=== PATIENT | female | born 1985 | race Hispanic/Latino ===

== ENCOUNTER 2020-10-22 18:42 | Emergency (ER) | payer OTHER ==
[~2020-10-22] VITALS: Ht 157.5 cm; Wt 95.3 kg
[2020-10-22 19:42] LABS: BASOPHILS % (AUTO) 0.6 % (0.0-5.0); EOSINOPHILS % (AUTO) 3.8 % (0.0-8.0); HEMATOCRIT 30.6 % (36-48); LYMPHOCYTES % (AUTO) 36.4 % (21.0-51.0); MEAN CORPUSCULAR HEMOGLOBIN 23.4 pg (27.0-33.0); MEAN CORPUSCULAR HGB CONC 30.7 g/dL (32.0-36.0); MEAN CORPUSCULAR VOLUME 76.3 fL (79-99); MONOCYTES % (AUTO) 6.3 % (3.0-13.0); NEUTROPHILS % (AUTO) 52.7 % (40.0-77.0); PLATELET COUNT (AUTO) 240 K/uL (130-400); RED BLOOD CELL COUNT(AUTO) 4.01 MIL/uL (4.00-5.50); RED CELL DISTRIBUTION WIDTH 15.6 % (11.0-15.5); WHITE BLOOD COUNT (AUTO) 8.4 K/uL (4.8-10.8)
[2020-10-22 20:19] LABS: CREATINE KINASE, TOTAL 80 U/L (21-232); MYOGLOBIN 15 ng/mL (10-92); TROPONIN I < 0.04 ng/mL (0.00-0.06)
[2020-10-22 20:33] VITALS: BP 135/73
[2020-10-22 20:58] LABS: CREATININE 0.7 mg/dL (0.5-1.5); POTASSIUM 3.8 mmol/L (3.5-5.1)
[2020-10-22 20:58] LABS: APPEARANCE,URINE Clear (CLEAR); BILIRUBIN,URINE Negative (NEGATIVE); COLOR,URINE Yellow (YELLOW); GLUCOSE, URINE (UA) Negative (NEGATIVE); KETONES,URINE Negative (NEGATIVE); LEUKOCYTE ESTERASE ,URINE Trace (NEGATIVE); NITRATE,URINE Negative (NEGATIVE); OCCULT BLOOD,URINE Large (NEGATIVE); PROTEIN,URINE Negative (NEGATIVE)
[2020-10-22 21:02] LABS: ALBUMIN 3.6 g/dL (3.5-5.0); BILIRUBIN,TOTAL 0.3 mg/dL (0.2-1.0); TOTAL PROTEIN, SERUM 7.2 g/dL (6.0-8.3)
[2020-10-22 21:02] LABS: HCG,QUAL RESULT NEGATIVE (NEGATIVE)
[2020-10-22 21:15] LABS: BACTERIA,URINE Few /HPF (None Seen); RBC,URINE 0-1 /HPF (0-1)
[2020-10-22 21:38] VITALS: BP 102/50
[2020-10-22] MEDS ORDERED: HYD25 PO (21:55)
== END 2020-10-22 22:11 | disposition home or self-care (01) ==
LOC: EDH 18:42
DX: R07.89 Other chest pain (principal); D64.9 Anemia, unspecified; F41.9 Anxiety disorder, unspecified; Z20.822 Contact with and (suspected) exposure to COVID-19; E11.9 Type 2 diabetes mellitus without complications; Z79.899 Other long term (current) drug therapy
CPT/HCPCS: 36415; 71045; 80053; 81001; 81025; 82550; 83690; 83874; 84484; 85025; 87635; 93005; 99285; C9803

== ENCOUNTER 2021-05-04 07:00 | Day surgery (SDC) | payer OTHER ==
[2021-05-03 15:38] LABS: BASOPHILS % (AUTO) 0.4 % (0.0-5.0); EOSINOPHILS % (AUTO) 0.7 % (0.0-8.0); HEMATOCRIT 29.8 % (36-48); MEAN CORPUSCULAR HEMOGLOBIN 22.8 pg (27.0-33.0); MEAN CORPUSCULAR HGB CONC 30.5 g/dL (32.0-36.0); MEAN CORPUSCULAR VOLUME 74.5 fL (79-99); MONOCYTES % (AUTO) 5.6 % (3.0-13.0); PLATELET COUNT (AUTO) 329 K/uL (130-400); RED CELL DISTRIBUTION WIDTH 15.9 % (11.0-15.5)
[2021-05-03 15:41] VITALS: BP 132/76
[~2021-05-04] VITALS: Ht 157.5 cm; Wt 90.7 kg
[2021-05-04] VITALS (9 sets, daily range): BP systolic 108–126; BP diastolic 48–78
[~2021-05-04 07:00] MED LIST: OMEP40CA21 PO
[2021-05-04] MEDS ORDERED: LACTATED RINGERS 1000ML 1,000 ML IV ONE (07:16)
[2021-05-04] MEDS ORDERED: PROPOFOL 10 MG/ML 20ML VIAL IV ONE (07:49)
[2021-05-04] MEDS ORDERED: LIDOCAINE PF 100MG/5ML (2%) SYRINGE 5ML ONE (07:50)
[2021-05-04] MEDS ORDERED: ROCURONIUM 10MG/1ML SYR 10 MG/ML ML ONE (07:50)
[2021-05-04] MEDS ORDERED: FENTANYL CITRATE PF 50 MCG/1 ML 2ML VIAL ONE (07:50)
[2021-05-04] MEDS ORDERED: MIDAZOLAM HCL 1 MG/ML 2ML VIAL ONE (07:50)
[2021-05-04] MEDS ORDERED: SUCCINYLCHOLINE 200MG/10ML SYR ONE (07:50)
[2021-05-04] MEDS ORDERED: iron PO (08:09)
[2021-05-04] MEDS ORDERED: vitamin d3 PO (08:09)
[2021-05-04] MEDS ORDERED: vitamin c PO (08:09)
[2021-05-04] MEDS ORDERED: LORA10TA7 PO (08:09)
[2021-05-04] MEDS ORDERED: DEXAMETHASONE SOD PHOSPHATE 4 MG/ML 1ML VIAL ONE (08:13)
[2021-05-04] MEDS ORDERED: ONDANSETRON 4MG INJ ONE (08:13)
[2021-05-04] MEDS ORDERED: EPHEDRINE SULFATE 50 MG/ML AMPULE ONE (08:22)
[2021-05-19] MEDS ORDERED: ACET1TAB25 PO (10:30)
== END 2021-05-04 10:38 | disposition home or self-care (01) ==
LOC: DAH 07:00
PROVIDERS: ATTEND Specialist
DX: N92.0 Excessive and frequent menstruation with regular cycle (principal); Z20.822 Contact with and (suspected) exposure to COVID-19; K21.9 Gastro-esophageal reflux disease without esophagitis; D64.9 Anemia, unspecified; E66.9 Obesity, unspecified; I49.3 Ventricular premature depolarization; Z98.890 Other specified postprocedural states; Z98.891 History of uterine scar from previous surgery
CPT/HCPCS: 36415; 58120; 84703; 85025; 86850; 86900; 86901; 87635; A4215; A4221; A4222; A4223; A4351; A4663; A4930; A6260; C9803; J0330; J1100; J2001; J2250; J2405; J2704; J3010; J3490; J7120

== ENCOUNTER 2021-05-07 15:30 | Observation (INO) | payer OTHER ==
[~2021-05-07] VITALS: Ht 157.5 cm; Wt 89.4 kg
[~2021-05-07 15:30] MED LIST changes: +LORA10TA7 PO; +iron PO; +vitamin c PO; +vitamin d3 PO
[2021-05-07] MEDS ORDERED: 0.9%NACL 1000ML 1,000 ML IV SCH (16:30)
[2021-05-07 16:50] VITALS: BP 125/74
[2021-05-07 17:31] LABS: BASOPHILS % (AUTO) 0.5 % (0.0-5.0); EOSINOPHILS % (AUTO) 1.1 % (0.0-8.0); HEMATOCRIT 22.5 % (36-48); LYMPHOCYTES % (AUTO) 22.2 % (21.0-51.0); MEAN CORPUSCULAR HEMOGLOBIN 22.8 pg (27.0-33.0); MEAN CORPUSCULAR HGB CONC 30.7 g/dL (32.0-36.0); MEAN CORPUSCULAR VOLUME 74.5 fL (79-99); MONOCYTES % (AUTO) 5.4 % (3.0-13.0); NEUTROPHILS % (AUTO) 69.6 % (40.0-77.0); NUCLEATED RED BLOOD CELLS 0.4 % (0.0-0.19); PLATELET COUNT (AUTO) 346 K/uL (130-400); RED BLOOD CELL COUNT(AUTO) 3.02 MIL/uL (4.00-5.50); RED CELL DISTRIBUTION WIDTH 16.8 % (11.0-15.5); WHITE BLOOD COUNT (AUTO) 9.3 K/uL (4.8-10.8)
[2021-05-07 19:18] VITALS: BP 138/79
[2021-05-07] MEDS: FERROUS SULFATE 325 MG TABLET.DR PO SCH (21:43)
[2021-05-07 23:30] VITALS: BP 126/78
[2021-05-08 04:00] VITALS: BP 97/60
[2021-05-08 06:56] LABS: HEMATOCRIT 28.1 % (36-48)
[2021-05-08 07:50] VITALS: BP 124/74
[2021-05-08] MEDS: FERROUS SULFATE 325 MG TABLET.DR PO SCH ×2 (09:05→20:12)
[2021-05-08] MEDS: MEDROXYPROGESTERONE ACET 5 MG TAB PO SCH (09:05)
[2021-05-08 12:30] VITALS: BP 122/73
[2021-05-08] MEDS: PANTOPRAZOLE 40 MG TAB DR PO SCH (12:38)
[2021-05-08 16:44] VITALS: BP 118/72
[2021-05-08 20:00] VITALS: BP 111/70
[2021-05-08 23:00] VITALS: BP 111/68
[2021-05-09 03:00] VITALS: BP 117/66
[2021-05-09 06:15] LABS: HEMATOCRIT 27.2 % (36-48); MEAN CORPUSCULAR HEMOGLOBIN 24.8 pg (27.0-33.0); MEAN CORPUSCULAR HGB CONC 32.7 g/dL (32.0-36.0); MEAN CORPUSCULAR VOLUME 75.8 fL (79-99); NUCLEATED RED BLOOD CELLS 0.2 % (0.0-0.19); PLATELET COUNT (AUTO) 124 K/uL (130-400); RED BLOOD CELL COUNT(AUTO) 3.59 MIL/uL (4.00-5.50); RED CELL DISTRIBUTION WIDTH 17.5 % (11.0-15.5); WHITE BLOOD COUNT (AUTO) 8.2 K/uL (4.8-10.8)
[2021-05-09 07:35] VITALS: BP 112/69
[2021-05-09] MEDS: FERROUS SULFATE 325 MG TABLET.DR PO SCH (09:33)
[2021-05-09] MEDS: MEDROXYPROGESTERONE ACET 5 MG TAB PO SCH (09:33)
[2021-05-09] MEDS: PANTOPRAZOLE 40 MG TAB DR PO SCH (09:33)
[2021-05-19] MEDS ORDERED: ACET1TAB25 PO (10:30)
== END 2021-05-09 10:20 | disposition home or self-care (01) ==
LOC: EDH 15:30 → INTOOBSV 15:31 → WSH 15:31
PROVIDERS: ADMIT Specialist; ATTEND Specialist
DX: N92.0 Excessive and frequent menstruation with regular cycle (principal); Z20.822 Contact with and (suspected) exposure to COVID-19; D64.9 Anemia, unspecified
CPT/HCPCS: 36415 ×3; 36430; 85014; 85018; 85025; 85027; 86850; 86900; 86901; 86923; 87635; G0378 ×37; J7030 ×2; P9016 ×2; 96365

== ENCOUNTER 2023-12-28 20:51 | Emergency (ER) | payer BC, OTHER ==
[~2023-12-28] VITALS: Ht 157.5 cm; Wt 91.2 kg
[~2023-12-28 20:51] MED LIST changes: +ACET-2079 PO
[2023-12-28] MEDS: LACTATED RINGERS 1000ML 1,000 ML IV ONE (21:26)
[2023-12-28] MEDS: 0.9%NACL 1000ML 1,000 ML IV ONE (21:26)
[2023-12-28 21:36] LABS: ADD UA MICROSCOPIC YES; APPEARANCE,URINE CLEAR (CLEAR); BILIRUBIN,URINE NEGATIVE (NEGATIVE); COLOR,URINE COLORLESS (YELLOW); GLUCOSE, URINE (UA) NEGATIVE (NEGATIVE); KETONES,URINE NEGATIVE (NEGATIVE); LEUKOCYTE ESTERASE ,URINE NEGATIVE Leu/uL (NEGATIVE); NITRATE,URINE NEGATIVE (NEGATIVE); OCCULT BLOOD,URINE NEGATIVE (NEGATIVE); PH,URINE 6.5 (5.0-8.0); PROTEIN,URINE NEGATIVE (NEGATIVE); UROBILINOGEN,URINE 0.2 mg/dL (0.2-1.0)
[2023-12-28 21:38] LABS: BACTERIA,URINE RARE /HPF (None Seen); RBC,URINE 0-1 /HPF (0-1); SQUAMOUS EPITHELIAL CELL,UR RARE /HPF (0-2); WBC,URINE 0-1 /HPF (0-1)
[2023-12-28 21:47] LABS: BASOPHILS # (AUTO) 0.04 K/uL (0.00-0.20); BASOPHILS % (AUTO) 0.4 % (0.0-5.0); EOSINOPHILS # (AUTO) 0.25 K/uL (0.00-0.70); EOSINOPHILS % (AUTO) 2.7 % (0.0-8.0); HEMATOCRIT 41.2 % (36-48); IMMATURE GRANULOCYTE ABSOLUTE 0.02 K/uL (0-1); LYMPHOCYTES # (AUTO) 2.6 K/uL (1.0-4.8); LYMPHOCYTES % (AUTO) 27.5 % (21.0-51.0); MEAN CORPUSCULAR HEMOGLOBIN 31.3 pg (27.0-33.0); MEAN CORPUSCULAR VOLUME 89.6 fL (79-99); MONOCYTES # (AUTO) 0.7 K/uL (0.1-1.0); MONOCYTES % (AUTO) 7.6 % (3.0-13.0); NEUTROPHILS # (AUTO) 5.7 K/uL (1.8-7.7); NEUTROPHILS % (AUTO) 61.6 % (40.0-77.0); PLATELET COUNT (AUTO) 247 K/uL (130-400); WHITE BLOOD COUNT (AUTO) 9.3 K/uL (4.8-10.8)
[2023-12-28 21:54] LABS: CREATININE 0.7 mg/dL (0.5-1.0); MAGNESIUM 1.8 mg/dL (1.80-2.40); POTASSIUM 3.7 mmol/L (3.5-5.1)
[2023-12-28 22:06] VITALS: BP 143/74; PULSE 81; RESP 20; TEMP 98.6; O2SAT 100
== END 2023-12-28 22:27 | disposition home or self-care (01) ==
LOC: EDH 20:51
DX: E86.0 Dehydration (principal); Z79.899 Other long term (current) drug therapy; Z87.59 Personal history of other complications of pregnancy, childbirth and the puerperium; Z98.890 Other specified postprocedural states
CPT/HCPCS: 99284; 83735; 84484; 80048; 84703; 85025; 81001; 36415; 93005; J7120; J7030

== ENCOUNTER 2024-01-02 21:37 | Emergency (ER) | payer BC ==
[~2024-01-02] VITALS: Ht 157.5 cm; Wt 91.2 kg
[2024-01-02 21:55] VITALS: TEMP 97.8
[2024-01-02] MEDS: LACTATED RINGERS 1000ML 1,000 ML IV ONE (22:03)
[2024-01-02 22:05] LABS: BASOPHILS # (AUTO) 0.05 K/uL (0.00-0.20); BASOPHILS % (AUTO) 0.5 % (0.0-5.0); EOSINOPHILS # (AUTO) 0.37 K/uL (0.00-0.70); EOSINOPHILS % (AUTO) 3.4 % (0.0-8.0); HEMATOCRIT 46.4 % (36-48); IMMATURE GRANULOCYTE ABSOLUTE 0.02 K/uL (0-1); LYMPHOCYTES # (AUTO) 3.7 K/uL (1.0-4.8); LYMPHOCYTES % (AUTO) 33.6 % (21.0-51.0); MEAN CORPUSCULAR HEMOGLOBIN 31.7 pg (27.0-33.0); MEAN CORPUSCULAR HGB CONC 34.9 g/dL (32.0-36.0); MEAN CORPUSCULAR VOLUME 90.8 fL (79-99); MONOCYTES # (AUTO) 0.7 K/uL (0.1-1.0); MONOCYTES % (AUTO) 6.3 % (3.0-13.0); NEUTROPHILS # (AUTO) 6.1 K/uL (1.8-7.7); PLATELET COUNT (AUTO) 279 K/uL (130-400); RED BLOOD CELL COUNT(AUTO) 5.11 MIL/uL (4.00-5.50); RED CELL DISTRIBUTION WIDTH 11.7 % (11.0-15.5); WHITE BLOOD COUNT (AUTO) 10.9 K/uL (4.8-10.8)
[2024-01-02 22:15] LABS: CREATININE 0.8 mg/dL (0.5-1.0); POTASSIUM 3.7 mmol/L (3.5-5.1)
[2024-01-02 22:17] LABS: INR 0.95 (0.85-1.15); PROTHROMBIN TIME 10.3 SEC (9.6-11.6)
[2024-01-02 22:19] LABS: B-TYPE NATRIURETIC PEPTIDE < 5 pg/mL (0-100)
[2024-01-02 23:05] LABS: APPEARANCE,URINE CLEAR (CLEAR); BILIRUBIN,URINE NEGATIVE (NEGATIVE); COLOR,URINE COLORLESS (YELLOW); GLUCOSE, URINE (UA) NEGATIVE (NEGATIVE); KETONES,URINE NEGATIVE (NEGATIVE); LEUKOCYTE ESTERASE ,URINE NEGATIVE Leu/uL (NEGATIVE); NITRATE,URINE NEGATIVE (NEGATIVE); OCCULT BLOOD,URINE NEGATIVE (NEGATIVE); PROTEIN,URINE NEGATIVE (NEGATIVE); UROBILINOGEN,URINE 0.2 mg/dL (0.2-1.0)
[2024-01-02 23:06] LABS: ADD UA MICROSCOPIC NO
[2024-01-02 23:08] LABS: AMPHET/METH SCREEN,URINE NEGATIVE (NEGATIVE); BARBITURATE SCREEN, URINE NEGATIVE (NEGATIVE); BENZODIAZEPINES SCREEN,URINE NEGATIVE (NEGATIVE); CANNABINOID SCREEN,URINE NEGATIVE (NEGATIVE); COCAINE SCREEN,URINE NEGATIVE (NEGATIVE); OPIATE SCREEN,URINE NEGATIVE (NEGATIVE); PHENCYCLIDINE SCREEN,URINE NEGATIVE (NEGATIVE)
[2024-01-02 23:50] VITALS: BP 133/72; PULSE 65; RESP 18; O2SAT 98
[2024-01-02] MEDS ORDERED: LORA10TA7 PO (23:51)
[2024-01-02] MEDS ORDERED: FLUT16H NASAL (23:51)
[2024-01-02] MEDS ORDERED: AMOX1TAB16 PO (23:51)
[2024-01-03] MEDS: 0.9%NACL 1000ML 1,000 ML IV ONE (00:18)
== END 2024-01-03 00:43 | disposition home or self-care (01) ==
LOC: EDH 21:37
DX: E86.0 Dehydration (principal); J32.9 Chronic sinusitis, unspecified; R06.02 Shortness of breath; R20.0 Anesthesia of skin; Z90.710 Acquired absence of both cervix and uterus; Z98.890 Other specified postprocedural states
CPT/HCPCS: 99284; 71045; 82550; 83735; 84484; 80048; 83880; 80305; 85025; 85610; 36415; 93005; 81003; J7120; J7030

== ENCOUNTER 2024-01-05 02:08 | Emergency (ER) | payer BC ==
[~2024-01-05] VITALS: Ht 157.5 cm; Wt 93.2 kg
[~2024-01-05 02:08] MED LIST changes: +AMOX1TAB16 PO; +FLUT16H NASAL
[2024-01-05 02:51] LABS: BASOPHILS # (AUTO) 0.04 K/uL (0.00-0.20); BASOPHILS % (AUTO) 0.5 % (0.0-5.0); EOSINOPHILS # (AUTO) 0.26 K/uL (0.00-0.70); HEMATOCRIT 45.2 % (36-48); IMMATURE GRANULOCYTE ABSOLUTE 0.03 K/uL (0-1); LYMPHOCYTES # (AUTO) 2.5 K/uL (1.0-4.8); LYMPHOCYTES % (AUTO) 28.3 % (21.0-51.0); MEAN CORPUSCULAR HEMOGLOBIN 31.2 pg (27.0-33.0); MEAN CORPUSCULAR HGB CONC 34.7 g/dL (32.0-36.0); MEAN CORPUSCULAR VOLUME 89.9 fL (79-99); MONOCYTES # (AUTO) 0.4 K/uL (0.1-1.0); MONOCYTES % (AUTO) 4.7 % (3.0-13.0); NEUTROPHILS # (AUTO) 5.6 K/uL (1.8-7.7); NEUTROPHILS % (AUTO) 63.2 % (40.0-77.0); PLATELET COUNT (AUTO) 238 K/uL (130-400); RED BLOOD CELL COUNT(AUTO) 5.03 MIL/uL (4.00-5.50); RED CELL DISTRIBUTION WIDTH 11.9 % (11.0-15.5); WHITE BLOOD COUNT (AUTO) 8.8 K/uL (4.8-10.8)
[2024-01-05 03:04] LABS: CREATININE 0.8 mg/dL (0.5-1.0); POTASSIUM 3.5 mmol/L (3.5-5.1)
[2024-01-05 06:02] VITALS: BP 141/83; PULSE 81; RESP 18; TEMP 97.5; O2SAT 100
== END 2024-01-05 10:53 | disposition short-term general hospital (02) ==
LOC: EDH 02:08 → UNDOADMIN 04:48 → EDHIP 04:48 → EDH 10:53
DX: R20.0 Anesthesia of skin (principal); R10.84 Generalized abdominal pain; D32.9 Benign neoplasm of meninges, unspecified; I10 Essential (primary) hypertension; Z90.49 Acquired absence of other specified parts of digestive tract; Z90.710 Acquired absence of both cervix and uterus
CPT/HCPCS: 36415; 70450; 74176; 80048; 84703; 85025